=== PATIENT | female | born 1950 | race Caucasian/White ===

== ENCOUNTER → 2020-09-18 08:55 | Outpatient (CLI) | payer MEDICARE, BC, SELFPAY | PROVIDERS: PCP Internal Medicine; Visit Provider Internal Medicine Gastroenterology | DX: Z01.818 Encounter for other preprocedural examination (principal); Z20.822 Contact with and (suspected) exposure to COVID-19; Z13.810 Encounter for screening for upper gastrointestinal disorder; K30 Functional dyspepsia; K21.9 Gastro-esophageal reflux disease without esophagitis | CPT/HCPCS: 36415; U0003 ==

== ENCOUNTER 2020-09-20 06:40 | Day surgery (SDC) | payer MEDICARE, BC, SELFPAY ==
[2020-09-20 07:02] VITALS: BP 156/67; PULSE 59; RESP 18; TEMP 36.2; O2SAT 95
[2020-09-20 07:51] VITALS: O2SAT 99
--- NOTE | 2020-09-20 08:04 | HMH.PROC ---
[facility] Procedure Note Procedure Note:: Upper Endoscopy Procedure Report: Esophagogastroduodenoscopy with cold biopsies and TTS balloon dilation Endoscopost: Viraj Boyce II, MD Referring Physician: Shamar Richardson MD Date of Procedure: September 20, 2020 Equipment: Olympus GIF 180 standard upper endoscope Sedation: MAC sedation Indications: Mrs. Becker is a 70-year-old female with longstanding functional dyspepsia. She also in the past has had IBS with constipation but more recently has had more postprandial diarrhea. She reports diarrhea that occurs 1 hour after meals. She has midepigastric pain and some mid retrosternal pressure and pain that goes all the way into her throat. She reports some globus sensation. She has had moderate belching. She also reports bloating and early satiety. She is on Nexium and domperidone. She did have prior cholecystectomy. 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 The patient's last EGD was in June 2015. Procedure: Prior to the procedure, a history and physical exam was performed, and patient's medications and allergies were reviewed. The risks, benefits and alternatives of the sedation and procedure were discussed with the patient. All questions were answered and informed consent was obtained. The patient was brought to the procedure room. Patient identification and proposed procedure were verified by the physician and the nurse. The patient was placed in a left lateral decubitus position and the scope was passed under direct vision. Throughout the procedure, the patient's blood pressure, pulse, and oxygen saturations were monitored continuously. The upper GI endoscopy was accomplished without difficulty. The patient tolerated the procedure well. Findings: The scope was passed directly into the upper esophagus and advanced to the third portion of the duodenum. The post bulbar duodenum and duodenal bulb were normal with normal mucosa and conniventes. The scope was withdrawn through a normal duodenal bulb and pylorus into the stomach. There was bile reflux with moderate linear reactive gastropathy of the antrum and body of the stomach. The remainder of the fundus of the stomach were grossly normal. Upon retroflexion there was no hiatal hernia. 2 biopsies were taken in the antrum and along the lesser curvature for histology to rule out gastritis and/or H pylori. There were a couple of gastric fundic gland polyps identified. The scope was then withdrawn into the esophagus. There was a serrated Z-line. There was no evidence of reflux esophagitis or Schatzki's ring. There were tertiary contractions and evidence of moderate esophageal dysmotility. The entire esophagus was dilated to 60 Albanian/20 mm with a TTS hydrostatic balloon. There was some resistance at the cricopharyngeus (cricopharyngeal spasm). The remainder of the esophageal mucosa was normal. Impression: 1. Cricopharyngeal spasm status post dilation to 20 mm 2. Nonerosive GERD with moderate esophageal dysmotility 3. Bile reflux with moderate linear reactive gastropathy Plan: I will follow-up the biopsies. The patient does have functional dyspepsia and functional GERD with esophageal dyskinesia. The patient is on Nexium and domperidone. I would consider adding buspirone and FDgard. I would like to make sure that she remains on the dietary measures and digestive enzyme supplement (Sucraid). I will discuss the findings with the patient and family.
--- NOTE | 2020-09-20 08:17 | P.PN_ITS ---
[facility] Anesthesia Checklist - Patient Identification Patient Identification: Arm Band - Structural Data Admitted From: Home Planned Operative Procedure/s: egd Consent for Planned Operative Procedure(s) Verified: Yes Verified Documents: Surgical Consent, History and Physical - NPO Status Verified Time NPO: 00:00 - Additional verifications Anesthesia Reactions: No - Airway Assessment C-Spine Mobility Assessed: Yes (mp2) TMJ Mobility Assessed: Yes Dentition: Good Dentition - Neurological Assessment Level of Consciousness: Awake, Alert - Anesthesia Plan Anesthesia Risk discussed: Yes Anesthesia Plan: Verified ASA Class: II Anesthesia Type: MAC [facility] History I have reviewed the patient's past medical history: Yes Medical History: Reports:: Anxiety, Asthma, Hyperlipidemia, Hypertension, Lung Disease (jose g-no cpap) Denies:: Cancer, Diabetes Mellitus Type 1, Diabetes Mellitus Type 2, Internal Pacemaker, MRSA, Seizures *Have you ever received a pneumonia vaccine?: Yes *Have you received a flu vaccine this season?: Yes Anesthesia experience/problems:: nac Laterality Cases: Left: Arthroscopy Shoulder, Bilateral: Tonsillectomy Other Surgeries: Yes: Cholecystectomy, Other. No: Pacemaker Amputation: No Fractures: No - *Social History Last grade of school completed: High school graduate Smoking Status: Never smoker Alcohol Intake: never Substance Use Type: denies use *Occupational Status:: retired Household Members: spouse *Travel in the last 8 weeks: None Family Hx:: No significant family history
[2020-09-20 08:18] VITALS: BP 123/69; PULSE 52; RESP 12; TEMP 36.4; O2SAT 93
[2020-09-20 08:28] VITALS: BP 112/69; PULSE 60; RESP 16; O2SAT 93
[2020-09-20 08:38] VITALS: BP 122/71; PULSE 60; RESP 16; O2SAT 95
[2020-09-20 08:48] VITALS: BP 140/76; PULSE 55; RESP 16; TEMP 36.4; O2SAT 95
== END 2020-09-20 09:10 | disposition home or self-care (01) ==
LOC: OUTP 06:43
PROVIDERS: PCP Internal Medicine; Visit Provider Internal Medicine Gastroenterology
PROC: 0DJ08ZZ Inspection of Upper Intestinal Tract, Via Natural or Artificial Opening Endoscopic (ICD-10-PCS; CPT 43235; principal; 2020-09-20 08:00)
DX: J39.2 Other diseases of pharynx (principal); K21.9 Gastro-esophageal reflux disease without esophagitis; K22.4 Dyskinesia of esophagus; K31.9 Disease of stomach and duodenum, unspecified; K31.7 Polyp of stomach and duodenum; K58.2 Mixed irritable bowel syndrome; E74.31 Sucrase-isomaltase deficiency; I10 Essential (primary) hypertension; E78.5 Hyperlipidemia, unspecified; J45.909 Unspecified asthma, uncomplicated; G47.33 Obstructive sleep apnea (adult) (pediatric); F41.9 Anxiety disorder, unspecified; Z87.39 Personal history of other diseases of the musculoskeletal system and connective tissue
CPT/HCPCS: 43239; 43249; 88305; 88342; C1726

== ENCOUNTER → 2021-01-29 11:53 | Outpatient (CLI) | payer MEDICARE, BC, SELFPAY | PROVIDERS: PCP Internal Medicine; Visit Provider Internal Medicine Gastroenterology | DX: Z01.812 Encounter for preprocedural laboratory examination (principal); Z20.822 Contact with and (suspected) exposure to COVID-19; Z13.810 Encounter for screening for upper gastrointestinal disorder; R10.11 Right upper quadrant pain ==

== ENCOUNTER → 2021-01-29 12:37 | Outpatient (CLI) | payer MEDICARE, BC, SELFPAY | PROVIDERS: Visit Provider Internal Medicine Gastroenterology | DX: Z01.812 Encounter for preprocedural laboratory examination (principal); Z20.822 Contact with and (suspected) exposure to COVID-19 | CPT/HCPCS: U0003 ==

== ENCOUNTER 2021-01-31 12:53 | Day surgery (SDC) | payer MEDICARE, BC, SELFPAY ==
[2021-01-28 16:11] VITALS: BMI 30.9
[2021-01-31] VITALS (9 sets, daily range): BP systolic 121–166; BP diastolic 66–87; PULSE 48–626; RESP 16; TEMP 36.4–36.5; O2SAT 94–98
--- NOTE | 2021-01-31 14:02 | FL_ITS ---
PROCEDURE: FL ERCP CLINICAL INDICATION: RUQ Pain COMPARISON: No exams were available for comparison FINDINGS: There are 4 images submitted with the endoscope in place. The pancreatic duct was initially cannulated. The there is suggestion of some minimal irregularity of the pancreatic duct with changes in caliber. Chronic pancreatitis is considered. Please correlate with fluoroscopic findings. No intraluminal filling defects are apparent. The common bile duct is dilated at approximately 11 and 12 mm. Prior cholecystectomy. There is question initially of some shouldering at the distal common bile duct possibly related to spasm. Please correlate with fluoroscopic findings. No obvious common duct stone. IMPRESSION: 1. Slight irregularity of the pancreatic duct raising the suspicion of chronic pancreatitis. 2. Mildly prominent common bile duct with questionable shouldering distally. Please correlate with fluoroscopic findings. Dictated by: Kulwinder Garcia MD 02/01/2021 09:26 Kulwinder Garcia MD in [place] 02/01/2021 09:26
--- NOTE | 2021-01-31 15:24 | HMH.PROC ---
[facility] Procedure Note Procedure Note:: ERCP procedure Report: Endoscopic retrograde cholangiopancreatography with biliary sphincterotomy and balloon extraction Endoscopist: Viraj Boyce II, MD Referring Physician: Shamar Richardson MD Date of Procedure: January 31, 2021 Equipment: Olympus 180 side viewing endoscope duodenoscope Sedation: MAC sedation Indication: Mrs. Becker is a 70-year-old female with a long history of functional dyspepsia, chronic digestive difficulty and IBS with constipation. She has had more upper abdominal pain radiating into the right side. The patient did have an EGD with nd in September 2020 showing bile reflux with moderate linear reactive gastropathy as well as some esophageal dyskinesia and nonerosive GERD. The patient recently saw Dr. Reuben Richardson because of some weight loss and persistent symptoms. He did do a CT scan of the abdomen and pelvis that showed post cholecystectomy with the common bile duct measuring 12 mm in diameter. There was also some main pancreatic duct dilation and a cystic lesion in the uncinate process region measuring 9 mm. The patient did have subsequent lab work that showed normal CA 19-9 (11) and CEA (1.1). The patient had normal amylase 37 and lipase 124. The patient's alkaline phosphatase was mildly raised to 140 and the ALT level was 29. The patient had normal hemoglobin and hematocrit of 14.5 and 43.1. The patient is not on any chronic pain therapy. Procedure: Prior to the procedure, a history and physical exam was performed, and patient's medications and allergies were reviewed. The risks, benefits and alternatives of the sedation and procedure were discussed with the patient. All questions were answered and informed consent was obtained. The patient was brought to the fluoroscopic radiology room. Patient identification and proposed procedure were verified by the physician and the nurse. The patient was placed in a swimmer's position between left lateral decubitus and prone position and the scope was passed under direct vision. Throughout the procedure, the patient's blood pressure, pulse, and oxygen saturations were monitored continuously. The ERCP was accomplished without difficulty. The patient tolerated the procedure well. Findings: The side-viewing duodenoscope was passed directly into the upper esophagus and advanced to the second portion of the duodenum. There was mild reactive gastropathy and nonerosive GERD. The ampulla was well visualized and was normal in appearance. Both the pancreatic duct and common bile duct were freely cannulated. The pancreatogram showed a 3 mm pancreatic duct in the head of the gland with a normal uncinate duct. The genu was normal and there was normal filling of the neck, body and tail the pancreas with no ductular ectasias or stricturing. Next, the common bile duct was freely cannulated. The cholangiogram showed an 11 to 12 mm common bile duct with normal filling of the intrahepatic biliary system. The cystic duct stump was normal and normal gallbladder removal clips were identified fluoroscopically. There was no stricturing or filling defects. There was smooth tapering at the ampulla/sphincter of Oddi. There was delayed drainage of bile and contrast from the biliary system. The findings were most consistent with sphincter of Oddi dysfunction. A biliary sphincterotomy was performed. Next, a sweeping balloon was placed at the hilum and swept through the biliary system twice with the passage of bui bile, contrast and a small amount of sludge/biliary debris (minor choledocholithiasis). Impression: 1. 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 The patient should have some clinical improvement with biliary sphincterotomy and biliary decompression.
--- NOTE | 2021-01-31 16:06 | HMH.ANESCL ---
[facility] Anesthesia Checklist - Structural Data Admitted From: Home Planned Operative Procedure/s: ercp Consent for Planned Operative Procedure(s) Verified: Yes - Additional verifications Anesthesia Reactions: No - Airway Assessment C-Spine Mobility Assessed: Yes TMJ Mobility Assessed: Yes Dentition: Good Dentition - Neurological Assessment Level of Consciousness: Awake, Alert, Appropriate - Anesthesia Plan Anesthesia Risk discussed: Yes Anesthesia Plan: Verified ASA Class: II Anesthesia Type: MAC [facility] History I have reviewed the patient's past medical history: Yes Medical History: Reports:: Anxiety, Asthma, Hyperlipidemia, Hypertension, Lung Disease (jose g-no cpap) Denies:: Cancer, Diabetes Mellitus Type 1, Diabetes Mellitus Type 2, Internal Pacemaker, MRSA, Seizures *Have you ever received a pneumonia vaccine?: Yes *Have you received a flu vaccine this season?: Yes Anesthesia experience/problems:: none Laterality Cases: Left: Arthroscopy Shoulder, Bilateral: Tonsillectomy Other Surgeries: Yes: Cholecystectomy, Other. No: Pacemaker Amputation: No Fractures: No - *Social History Last grade of school completed: High school graduate Smoking Status: Never smoker Alcohol Intake: never Substance Use Type: denies use *Occupational Status:: retired Housing: house Household Members: spouse *Travel in the last 8 weeks: None - Psychiatric History Pschychiatric History:: Reports:: Anxiety Family Hx:: No significant family history
== END 2021-01-31 17:40 | disposition home or self-care (01) ==
LOC: OUTP 12:55
PROVIDERS: PCP Internal Medicine; Visit Provider Internal Medicine Gastroenterology
DX: K80.50 Calculus of bile duct without cholangitis or cholecystitis without obstruction (principal); K58.1 Irritable bowel syndrome with constipation; J45.909 Unspecified asthma, uncomplicated; E78.5 Hyperlipidemia, unspecified; I10 Essential (primary) hypertension; G47.33 Obstructive sleep apnea (adult) (pediatric); F41.9 Anxiety disorder, unspecified; G43.909 Migraine, unspecified, not intractable, without status migrainosus; G25.81 Restless legs syndrome; Z88.1 Allergy status to other antibiotic agents; Z88.2 Allergy status to sulfonamides; Z88.8 Allergy status to other drugs, medicaments and biological substances
CPT/HCPCS: 43262; 43264; 74330; 76000; Q9967